=== PATIENT | male | born 1955 | race Hispanic/Latino ===

== ENCOUNTER 2019-04-22 14:41 | Emergency (ER) | payer BC ==
[2019-04-22] MEDS ORDERED: ONDANSETRON 4 MG/2 ML INJ IM ONE (15:19)
[2019-04-22] MEDS ORDERED: MORPHINE 4 MG/1 ML INJ IM ONE (15:19)
--- NOTE | 2019-04-22 15:32 | Emergency Department Report ---
ED Back Pain/Injury HPI - General Chief Complaint: Back Pain/Injury Stated Complaint: PAIN LOWER BACK/LEGS Time Seen by Provider: 04/22/19 15:10 Source: patient Limitations: No Limitations - History of Present Illness Initial Comments: Patient is 64 yo male with no significant past medical history presented to the ER c/o lower back pain for the last 3 days. patient denied any trauma, fever, loss weight , bowel bladder dysfunction. no weakness, numbness. MD Complaint: back pain, back injury Place: home Improves With: immobilization Worsens With: movement Associated Symptoms: denies other symptoms - Related Data Allergies Allergy/AdvReac Type Severity Reaction Status Date / Time Penicillins Allergy Intermediate Rash Verified 04/22/19 15:41 ED Review of Systems ROS: Stated complaint: PAIN LOWER BACK/LEGS Other details as noted in HPI Comment: All other systems reviewed and negative Constitutional: denies: chills, fever Respiratory: denies: cough, orthopnea, shortness of breath, SOB with exertion, SOB at rest, wheezing Cardiovascular: denies: chest pain, palpitations Gastrointestinal: denies: abdominal pain, nausea, vomiting, diarrhea, constipation, hematemesis, melena, hematochezia Genitourinary: denies: urgency, dysuria, frequency, hematuria, discharge Musculoskeletal: back pain Skin: denies: rash, lesions, change in color, change in hair/nails, pruritus Neurological: denies: headache, weakness, numbness, paresthesias, confusion ED Past Medical Hx - Past Medical History Previous Medical History?: No - Surgical History Past Surgical History?: No - Social History Smoking Status: Current Every Day Smoker Substance Use Type: None ED Physical Exam - General Limitations: No Limitations General appearance: alert, in no apparent distress - Head Head exam: Present: atraumatic, normocephalic, normal inspection - Eye Eye exam: Present: normal appearance, PERRL - ENT ENT exam: Present: normal exam, normal orophraynx, mucous membranes moist - Neck Neck exam: Present: normal inspection, full ROM. Absent: tenderness, meningismus, lymphadenopathy, thyromegaly - Respiratory Respiratory exam: Present: normal lung sounds bilaterally - Cardiovascular Cardiovascular Exam: Present: regular rate, normal rhythm, normal heart sounds - GI/Abdominal GI/Abdominal exam: Present: soft, normal bowel sounds. Absent: distended, tenderness, guarding, rebound, rigid, organomegaly, mass, bruit, pulsatile mass, hernia - Extremities Exam Extremities exam: Present: normal inspection, full ROM, normal capillary refill. Absent: pedal edema, calf tenderness - Back Exam Back exam: Present: normal inspection, full ROM, tenderness. Absent: CVA tenderness (R), CVA tenderness (L), muscle spasm, paraspinal tenderness, vertebral tenderness - Neurological Exam Neurological exam: Present: alert, oriented X3, CN II-XII intact, normal gait, reflexes normal - Psychiatric Psychiatric exam: Present: normal mood - Skin Skin exam: Present: warm, intact, normal color ED Course Vital Signs 04/22/19 04/22/19 04/22/19 14:58 17:11 17:14 Temperature 98.0 F 97.6 F Pulse Rate 90 77 Respiratory 16 18 18 Rate Blood Pressure 153/70 Blood Pressure 142/74 [Left] O2 Sat by Pulse 100 98 Oximetry 04/22/19 17:16 Temperature Pulse Rate Respiratory 18 Rate Blood Pressure Blood Pressure [Left] O2 Sat by Pulse Oximetry ED Medical Decision Making - Radiology Data Radiology results: report reviewed - Medical Decision Making Patient is 64 yo male with no significant past medical history presented to the ER c/o lower back pain for the last 3 days. patient denied any trauma, fever, loss weight , bowel bladder dysfunction. no weakness, numbness. Patient stated that he is feeling much better. Patient is still denied any numbness, numbness or tingling sensation. No bowel or bladder dysfunction. CT lumbar showed L4-5 spinal stenosis. Patient advised to follow-up with his primary care physician for referral to a spinal surgeon for further management. Patient also advised to return to the ER if symptoms are not improved. Critical care attestation.: If time is entered above; I have spent that time in minutes in the direct care of this critically ill patient, excluding procedure time. ED Disposition Clinical Impression: Acute back pain, Spinal stenosis at L4-L5 level Disposition: -01 TO HOME OR SELFCARE Is pt being admited?: No Condition: Stable Instructions: Lumbar Spinal Stenosis (ED), Acute Low Back Pain (ED) Referrals: BEATRIS MOORE MD [Staff Physician] - 3-5 Days
[2019-04-22] MEDS ORDERED: KETOROLAC 30 MG/1 ML INJ IV ONE (16:01)
--- NOTE | 2019-04-22 16:42 | Cat Scan Report ---
CT LUMBAR SPINE WITHOUT CONTRAST INDICATION / CLINICAL INFORMATION: back pain and injury. TECHNIQUE: Axial CT images were obtained through the lumbar spine. Sagittal and coronal reformatted images were produced. All CT scans at this location are performed using CT dose reduction for ALARA by means of a utomated exposure control. COMPARISON: None available. FINDINGS: TRAUMA:There is no indication of fracture or traumatic subluxation. ALIGNMENT: Mild rightward curvature of the lumbar spine is noted without definite scoliosis. No addit ional abnormalities of alignment are identified. VERTEBRAE: Prominent anterior and lateral osteophyte formation is present at multiple levels DISC SPACES: Loss of disc height and disc vacuum phenomena are noted at the L4-5 level with milder di sc vacuum phenomena at L5-S1. LEVEL BY LEVEL ANALYSIS: L1-2: Anterior and right lateral osteophyte formation are demonstrated. Central spinal canal and neur oforamina are adequately maintained. L2-3: Prominent anterior and bilateral lateral osteophyte formation is noted. Mild facet arthropathy is demonstrated. Central spinal canal and neuroforamina are adequately maintained. L3-4: Anterior and left lateral osteophyte formation are noted. Mild facet arthritic changes are obse rved. Central spinal canal and neuroforamina are adequately maintained. L4-5: Loss of disc height and disc vacuum phenomena are noted. Broad-based disc bulge, facet arthropa thy and thickening of ligamentum flavum contribute to moderate central canal stenosis at the L4-5 lev el. Moderate bilateral neuroforaminal stenosis is observed at the L4 nerve root level. L5-S1: Mild disc vacuum phenomena is noted bilateral facet arthritic changes are observed. Central sp inal canal is mildly narrowed without definite stenosis. Facet arthropathy contributes to moderate bi lateral foraminal stenosis at the L5 nerve root level.. SPINAL CANAL: Is noted above central canal is narrowed at the L4-5 level where moderate central canal stenosis is observed. SACRUM:No significant abnormality of the visualized sacrum. Sacroiliac joints have an unremarkable ap pearance. PARASPINAL SOFT TISSUES: Calcified atherosclerotic plaque is seen along the course of the abdominal a itz and common iliac arteries. No additional paraspinous abnormalities are identified. IMPRESSION: 1. Widespread degenerative changes as described level by level above. 2. Moderate central stenosis at L4-5. 3. Bilateral foraminal stenosis at L4-5 and L5-S1. Signer Name: Raul Owens MD Signed: 04/22/2019 4:37 PM Workstation Name: [id number]
[2019-04-22] MEDS ORDERED: HYDROmorphone 1 MG/1 ML INJ IV ONE (17:02)
[2019-04-22] MEDS ORDERED: methylPREDNISolone Sod Succinate 125 MG/2 ML INJ IV ONE (17:02)
[2019-04-22] MEDS ORDERED: methylPREDNISolone Sod Succinate 125 MG/2 ML INJ ONE (17:05)
[2019-04-22] MEDS ORDERED: HYDROmorphone 1 MG/1 ML INJ ONE (17:06)
[2019-04-22 17:14] VITALS: BP 142/74
--- NOTE | 2019-04-22 17:59 | XRay Report ---
AP PELVIS 2 VIEWS INDICATION / CLINICAL INFORMATION: Fall with pelvic pain. COMPARISON: None available. FINDINGS: BONES / JOINT(S): The hip and SI joint spaces are well-maintained. There is a 1.7 cm low-grade cartil aginous lesion in the left intertrochanteric region. No suspicious feature is seen. There is mild low er lumbar spondylosis. I see no evidence of fracture or dislocation. SOFT TISSUES: No significant abnormality. ADDITIONAL FINDINGS: None. IMPRESSION: 1. No acute abnormality. 2. Low-grade cartilaginous lesion in the left intertrochanteric region. Signer Name: Zaki Olivas MD Signed: 04/22/2019 5:54 PM Workstation Name: [id number]
--- NOTE | 2019-04-22 18:00 | XRay Report ---
SACRUM/COCCYX 4 VIEWS INDICATION / CLINICAL INFORMATION: Low back pain/injury after fall. COMPARISON: CT lumbar spine without contrast from earlier today. FINDINGS: BONES and JOINT(S): No acute fracture or subluxation. No significant arthritis is seen along the SI j oints or elsewhere in the pelvis. There is mild lower lumbar spondylosis. SOFT TISSUES: No significant abnormality. ADDITIONAL FINDINGS: None. IMPRESSION: No acute abnormality of the sacrum/coccyx. Signer Name: Wali Gonzalez MD Signed: 04/22/2019 5:56 PM Workstation Name: [id number]
== END 2019-04-22 18:35 | disposition home or self-care (01) ==
LOC: ED 14:41
DX: M48.061 Spinal stenosis, lumbar region without neurogenic claudication (principal); F17.200 Nicotine dependence, unspecified, uncomplicated; Z88.0 Allergy status to penicillin
CPT/HCPCS: 72131; 72170; 72220; 96372; 96374; 96375; 99284; J1170; J1885; J2270; J2405; J2930